=== PATIENT | female | born 1985 | race Caucasian/White ===

== ENCOUNTER 2020-11-04 12:01 | Emergency (ER) | payer OTHER, SELFPAY ==
--- NOTE | ~2020-11-04 | XR_ITS ---
XR ankle RT min 3V 11/04/2020 12:42 Indication: Status post fall downstairs. Medial pain. Procedure: 4 views of the right ankle Comparison: No prior studies for comparison. Findings: There is a nondisplaced avulsion fracture medial malleolus. Ankle mortise intact. No other fractures. Prominent degenerative calcaneal enthesophytes. Mild medial soft tissue swelling. Impression: 1: Nondisplaced avulsion fracture medial malleolus. Reviewed, dictated and finalized at location A. S [employer] MANAGER Impression: 1: Nondisplaced avulsion fracture medial malleolus.
[2020-11-04 12:12] VITALS: BP 129/81; PULSE 72; RESP 16; TEMP 36.4; O2SAT 100
[2020-11-04 12:30] VITALS: BP 129/81; PULSE 72; RESP 16; TEMP 36.4; O2SAT 100
--- NOTE | 2020-11-04 13:08 | ED.LOWEXIN ---
HPI - Extremity Injury (Lower) General Chief Complaint: Extremity Injury, Lower Stated Complaint: lower extremity injury Time Seen by Provider: 11/04/20 13:02 Source: patient and RN notes reviewed Mode of arrival: wheelchair Limitations: no limitations History of Present Illness HPI Narrative: Patient presents today complaining of right ankle injury. She tripped over her cat and rolled her ankle while walking down some stairs just prior to arrival. She is complaining of medial ankle pain. She has been ambulatory for short distances to get from her house to her car and from the car into the urgent care. Denies numbness or tingling. Currently rates her pain 3/10. She has tried no qddy-[id number]-[id number] interventions prior to arrival. History of gastric bypass and is unable to take NSAIDs. Related Data Home Medications Medication Instructions Recorded Confirmed biotin 10,000 mcg PO DAILY 11/04/20 11/04/20 calcium-vitamin D3-vitamin K 1 tablet PO TID 11/04/20 11/04/20 [Calcium Chew] citalopram 10 mg PO DAILY 11/04/20 11/04/20 fenofibrate 50 mg PO DAILY 11/04/20 11/04/20 lisinopril 20 mg PO DAILY 11/04/20 11/04/20 metformin 500 mg PO BID 11/04/20 11/04/20 [id number]-yom-vqny-FA-vit K 1 tablet PO BID 11/04/20 11/04/20 [Adults Multivitamin] ursodiol 300 mg PO BID 11/04/20 11/04/20 vitamin B complex [B 1 tablet PO DAILY 11/04/20 11/04/20 Complex-Vitamin B12] Allergies Allergy/AdvReac Type Severity Reaction Status Date / Time NSAIDS (Non-Steroidal AdvReac Other Verified 11/04/20 12:30 Anti-Inflamma Review of Systems Review of Systems: Narrative: CONSTITUTIONAL: Denies body aches, fever, chills, or sweats. EYES: Denies visual changes, redness, or discharge. ENT: Denies rhinorrhea, congestion, sore throat, or otalgia. CARDIOVASCULAR: Denies chest pain, palpitations, or edema. RESPIRATORY: Denies cough or dyspnea. GASTROINTESTINAL: Denies abdominal pain, nausea, vomiting, or diarrhea. GENITOURINARY: Denies dysuria or hematuria. SKIN: Denies rash, itching, or wounds. MUSCULOSKELETAL: Denies back pain, or myalgia. + Right ankle injury NEUROLOGIC: Denies headache, numbness, tingling, or weakness. PSYCH: Denies depression or anxiety. [facility] Past Medical History Medical History (Updated 11/04/20 @ 14:38 by Amber Sepulveda, [employer], ) Hypertension Surgical History Surgical History (Updated 11/04/20 @ 14:37 by Amber Sepulveda, [facility], ) H/O gastric bypass Comments At time of signature, I have reviewed and agree with nursing past medical, surgical, social and family history unless otherwise noted. Please see nursing chart for further information. There is no relevant family history pertinent to the presenting complaint Exam Narrative: Exam Narrative: GENERAL: Well-appearing, well-nourished, and in no acute distress. HEAD: Normocephalic, atraumatic. EYES: EOMI. No redness or drainage. Conjunctivae normal. ENT: Mucous membranes pink and moist. NECK: Normal AROM. CHEST: No respiratory distress. EXTREMITIES: Right ankle: Bony tenderness to the medial malleolus with mild edema. No tenderness laterally or to the foot. Distal sensation intact. Capillary refill normal. Pedal pulse normal. Full range of motion of the toes. Full range of motion of the ankle with increased pain. No color change. SKIN: Warm, dry, no rash. Capillary refill normal. Normal skin turgor. NEURO: No focal deficits. Alert and oriented x3. PSYCH: Normal affect. No signs of depression or anxiety. Course Vital Signs Vital signs: Vital Signs Temperature 97.5 F L 11/04/20 12:12 Pulse Rate 72 11/04/20 12:12 Respiratory Rate 16 11/04/20 12:12 Blood Pressure 129/81 11/04/20 12:12 Pulse Oximetry 100 11/04/20 12:12 Temperature 97.5 F L 11/04/20 12:30 Pulse Rate 72 11/04/20 12:30 Respiratory Rate 16 11/04/20 12:30 Blood Pressure 129/81 11/04/20 12:30 Pulse Oximetry 100 11/04/20 12:30 Review
== END 2020-11-04 13:32 | disposition home or self-care (01) ==
PROVIDERS: Emergency Provider Nurse Practitioner; PCP Nurse Practitioner Family
DX: S82.54XA Nondisplaced fracture of medial malleolus of right tibia, initial encounter for closed fracture (principal); X58.XXXA Exposure to other specified factors, initial encounter; I10 Essential (primary) hypertension
CPT/HCPCS: 29515; 73610; 99214; G0463

== ENCOUNTER 2020-11-15 09:38 | Outpatient (CLI) | payer OTHER, SELFPAY ==
--- NOTE | ~2020-11-15 | US_ITS ---
EXAMINATION: US venous doppler LE RT DATE: 11/15/2020 10:10 INDICATION: Right calf pain. TECHNIQUE: Grayscale ultrasound images without and with compression and Doppler ultrasound images of the right lower extremity veins were obtained. COMPARISON: None. FINDINGS: The visualized portions of right common femoral vein, profunda (deep) femoral vein, femoral vein, pop liteal vein, peroneal veins, posterior tibial veins, and greater saphenous vein outflow are patent. IMPRESSION: 1. No deep venous thrombosis. Reviewed, dictated and finalized at location B. ISITION MANAGER
== END 2020-11-15 09:39 | disposition home or self-care (01) ==
PROVIDERS: Family Provider Family Medicine; PCP Nurse Practitioner Family; Visit Provider Orthopaedic Surgery
DX: R60.9 Edema, unspecified (principal)
CPT/HCPCS: 93971

== ENCOUNTER 2020-12-19 09:00 | Outpatient (RCR) | payer OTHER, SELFPAY ==
--- NOTE | 2020-11-22 13:34 | PTOPEVAL ---
PHYSICAL THERAPY EVALUATION AND PLAN OF CARE 11-22-20 Thank you for referring Kassidy Orosco to [facility].? She is scheduled to be seen for therapy? 1-2 x/week for 4 weeks. Due to her work schedule, she may not be able to make appointments 2 x/wk. Please review, sign, date and return this plan of care MATY. I agree with and certify that the following plan of care is medically necessary. Referring Physician Date Referring Provider: Ferdinand Ferrera MD *PT Outpatient Evaluation Document 11/22/20 12:35 MARGAUX (Rec: 11/22/20 13:34 MARGAUX [id number]) Therapy Assessment Status Assessment Status Assessment Status Evaluation Outpatient Past Medical History Past Medical History Source of Past Medical History Recalled from Previous Visit, Confirmed with Patient/Family Neurological History Hx Migraine Yes: occasional Cardiovascular History Hx Hypercholesterolemia Yes: triglicerides elevated- meds Hx Hypertension Yes: meds Respiratory History Hx Respiratory Disorders No Significant History Gastrointestinal History Hx Gastric Bypass Surgery Yes: Jun 2020, have lost 82#; Hx Other Gastrointestinal Disorders Yes: FATTY LIVER Genitourinary History Hx Genitourinary Disorders No Significant History Musculoskeletal History Hx Other Musculoskeletal Disorders Yes: L knee pain, L ankle sprain; Hematological History Hx Hematological Disorders No Significant History Endocrine History Hx Diabetes Yes: meds Reproductive History Hx Section Yes: X1 Hx Hysterectomy Yes Psychosocial History Hx Anxiety Yes Other History Hx Other Medical Conditions Yes: obese Evaluation Information Problem Diagnosis R ankle sprain Onset Nov 04, 2020 Subjective Information she was carrying laundry Query Text:As Reported By Patient/ basket on stairs, tripped over Family cat and fell; ankle popped and pain instant with slight swelling; went to urgent care , x ray negative; doppler negative; had ankle splint- no longer use; have ankle stabilization brace; Previous Treatments Previous Treatments For This Problem no PT for ankle Prior Level of Function Activity Level (Last 3 Months) Occupation nurse Activity of Daily Living Ability Independent Indoor/Home Mobility Independent Community Mobility Independent Stairs Ability Independent Functional Cognition (Planning, Shopping Independent , Taking Medications) Cooking
--- NOTE | 2020-12-19 09:42 | PTOPEVAL ---
PHYSICAL THERAPY DISCHARGE 12-19-20 Refer to the clinical summary below for her status at discharge. The goals were achieved, except pain rating at the highest rating and reps performed of single leg PF. Thank you for referring Kassidy Orosco to [facility].? Please review, sign, date and return this discharge MATY. I agree with and certify that the following plan of care is medically necessary. Referring Physician Date Referring Provider: Ferdinand Ferrera MD Document 12/19/20 09:05 MARGAUX (Rec: 12/19/20 09:42 MARGAUX [id number]) Assessment Status Discharge Subjective Information Cat reports: ankle is much Query Text:As Reported By Patient/ better; still have some Family tenderness, but not really painful at all; is stronger; is doing home exercises without any problems; agrees with discharge from PT services, to continue with exercises and return to fitness center for aerobic and resisted exercises. Pain Assessment Timing of Pain Assessment Timing of Pain Assessment Assessment Pain Scale Pain Scale Used Numeric (1 - 10) Self Report Pain Assessment Right Ankle(s) Reported Pain Level 1 Pain Description Aching,Dull,Tender on Palpation Pain Frequency Acute Lowest Pain Intensity 0 Greatest Pain Intensity 4 Other Pain Aggravating Factors after work day Pain Score Pain Score 1: Self Report Additional Pain Score Comments not taking tylenol anymore; ankle does not stop me from doing anything- just sore and tender afterwards; Interventions Used Interventions Used By Clinicians Exercise Other Alleviating Interventions not using ankle brace at work for past 2 weeks; decrease swelling; not cane Lower Extremity Range of Motion General Lower Extremity Range of Motion Gross Lower Extremity Range of Motion long sitting active R ankle Comments ROM WNL; with eversion reports twinge of pain in lateral malleoli; no tenderness over medial malleoli Lower Extremity Muscle Strength Testing General Lower Extremity Strength Gross Lower Extremity Strength R single leg stand 44 sec; single leg PF x 3 reps without UE use and 13 with 1 UE hold/ L x 4 reps without UE use; long sitting
== END 2020-12-19 10:17 | disposition home or self-care (01) ==
LOC: ANHPT 09:00
PROVIDERS: Family Provider Family Medicine; PCP Nurse Practitioner Family; Referring Provider Orthopaedic Surgery; Visit Provider Orthopaedic Surgery
DX: S93.401D Sprain of unspecified ligament of right ankle, subsequent encounter (principal)
CPT/HCPCS: 97110; 97140; 97161